=== PATIENT | female | born 1980 | race Caucasian/White ===

== ENCOUNTER → 2017-04-01 | Outpatient (CLI) | payer OTHER ==
[~2017-04-01] MED LIST: ADVIL200 M1 PO; ATIVAN-DPS0.5 MG PO; BENADRYL-DPS50 MG PO; COLACE-DPS100 MG PO; COLACE100 MG PO; ELAVIL-DPS25 MG PO; GABAPENTIN600 MG PO; MAG-OX400 MG PO; NEXIUM40 MG PO; NORCO 5-325 TA1 EACH PO; NUCYNTA50 MG PO; PERCOCET 5 DPS1 TAB PO; PERCOCET 5-3251 EACH PO; SURFAK240 MG PO; TEARS NATURAL D15 ML OU; TIZANIDINE HCL2 M1 PO; TYLENOL DPS325 MG PO; TYLENOL325 MG PO; VALIUM5 MG PO; VALTREX DPS500 MG PO; VALTREX500 MG PO; ZOFRAN DPS8 MG PO
== END | disposition home or self-care (01) ==
LOC: RAD.S 12:26
DX: R51 Headache (principal); G91.9 Hydrocephalus, unspecified; Z98.2 Presence of cerebrospinal fluid drainage device

== ENCOUNTER → 2017-04-22 | Outpatient (CLI) | payer OTHER | END | disposition home or self-care (01) | LOC: RAD.S 14:19 → PTH.S 14:30 → RAD.S 16:30 | DX: R07.9 Chest pain, unspecified (principal); R06.02 Shortness of breath ==